=== PATIENT | male | born 1985 | race Caucasian/White ===

== ENCOUNTER 2022-03-27 13:52 | Emergency (ER) | payer OTHER ==
[~2022-03-27] VITALS: Ht 172.7 cm; Wt 64.5 kg
[2022-03-27 13:53] VITALS: BP 135/81
== END 2022-03-27 16:09 | disposition home or self-care (01) ==
LOC: M ED 13:52
DX: S93.401A Sprain of unspecified ligament of right ankle, initial encounter (principal); X50.1XXA Overexertion from prolonged static or awkward postures, initial encounter; Y92.096 Garden or yard of other non-institutional residence as the place of occurrence of the external cause; M25.471 Effusion, right ankle